=== PATIENT | female | born 2000 | race Caucasian/White ===

== ENCOUNTER 2022-04-05 09:50 | Emergency (ER) | payer SELFPAY ==
[~2022-04-05] VITALS: Ht 170.2 cm; Wt 92.3 kg
[2022-04-05] MEDS ORDERED: LEXAPRO20 MG PO (10:06)
[2022-04-05 10:42] LABS: BASO # 0.1 K/mm3 (0.0-0.2); BASO % 0.7 % (0.0-2.0); EOS # 0.4 K/mm3 (0.0-0.7); EOS % 3.8 % (0.0-4.0); GRAN # 7.9 K/mm3 (1.4-6.5); GRAN % 76.6 % (42.2-75.2); HEMATOCRIT 41.3 % (37.0-47.0); HEMOGLOBIN 14.2 g/dl (12.5-16.0); LYMPH # 1.3 K/mm3 (1.2-3.4); LYMPH % 12.6 % (20.0-51.0); MEAN CELL VOLUME 85 fl (80.0-100.0); MEAN CORPUSCULAR HEMOGLOBIN 29 pg (27-31); MEAN CORPUSCULAR HGB CONC 34 g/dl (33.0-37.0); MONO # 0.6 K/mm3 (0.1-0.6); PLATELET COUNT 452 K/mm3 (130-400); RED BLOOD COUNT 4.84 M/mm3 (4.10-5.30); REDCELL DISTRIBUTION WIDTH-CV 12.6 % (11.5-14.5)
[2022-04-05 11:01] LABS: ALBUMIN 4.4 gm/dL (3.5-5.0); BILIRUBIN,TOTAL 0.6 mg/dL (0.2-1.2); CALCIUM 9.7 mg/dL (8.4-10.2); CREATININE, serum 0.72 mg/dL (0.57-1.11); POTASSIUM 3.8 mmol/L (3.5-4.5); TOTAL PROTEIN 7.9 gm/dL (6.2-8.1)
[2022-04-05 12:00] VITALS: BP 147/80
[2022-04-05] MEDS ORDERED: ZOFRAN ODT4 MG PO (12:04)
[2022-04-05] MEDS ORDERED: PREDNISONE20 MG PO (12:06)
[2022-04-05 12:15] VITALS: PULSE 83
== END 2022-04-05 12:25 | disposition home or self-care (01) ==
LOC: COL.ER 09:50
PROVIDERS: Physician Assistant
DX: K92.0 Hematemesis (principal); R06.2 Wheezing; Z28.310 Unvaccinated for COVID-19
CPT/HCPCS: J2405; J7030